=== PATIENT | male | born 1945 | race Caucasian/White ===

== ENCOUNTER 2018-04-25 13:54 | Outpatient (CLI) | payer OTHER | END 2018-04-25 14:07 | disposition home or self-care (01) | LOC: LAB 13:54 | DX: D50.8 Other iron deficiency anemias (principal); I10 Essential (primary) hypertension ==

== ENCOUNTER 2023-06-21 09:12 | Emergency (ER) | payer OTHER ==
[~2023-06-21] VITALS: Ht 177.8 cm; Wt 93.0 kg
[2023-06-21] MEDS ORDERED: LISINOPRIL20 MG PO (09:28)
[2023-06-21] MEDS ORDERED: JARDIANCE25 MG PO (09:28)
[2023-06-21] MEDS ORDERED: METOPROLOL TAR100 MG PO (09:28)
[2023-06-21] MEDS ORDERED: ELIQUIS5 MG PO (09:29)
[2023-06-21] MEDS ORDERED: ATORVASTATIN CA80 MG PO (09:29)
[2023-06-21] MEDS ORDERED: METFORMIN HCL500 M4 PO (09:29)
[2023-06-21] MEDS ORDERED: DILTIAZEM 24HR180 MG PO (09:29)
[2023-06-21] MEDS ORDERED: LEVOTHYROXINE50 MCG PO (09:29)
[2023-06-21] MEDS ORDERED: LANTUS SOL100 UNIT/1 (09:30)
[2023-06-21] MEDS ORDERED: TRIAMTERENE-HC1 EAC3 PO (09:30)
[2023-06-21 10:58] LABS: HEMATOCRIT 39.4 % (39.0-48.0); HEMOGLOBIN 13.7 g/dL (13-16.00); MEAN CELL VOLUME 89.5 fL (80.0-100.00); MEAN CORPUSCULAR HGB CONC 34.7 g/dl (32.0-36.0); PLATELET COUNT 263 K/uL (150-450); RED BLOOD COUNT 4.41 M/uL (4.00-6.00); RED CELL DISTRIBUTION WIDTH 14.2 % (11.5-14.5)
[2023-06-21 11:36] LABS: CALCIUM 9.1 mg/dL (8.5-10.1); CREATININE SERUM 1.07 mg/dL (0.70-1.30); GFR 66.84; POTASSIUM 3.77 mEq/L (3.5-5.1)
[2023-06-21 12:16] LABS: D DIMER 0.51 MG/L; INR 1.04; PARTIAL THROMBOPLASTIN TIME 34.2 SECONDS (22.0-34.0); PROTHROMBIN TIME 10.9 SECONDS (9.0-11.5)
== END 2023-06-21 14:14 | disposition home or self-care (01) ==
LOC: ER 09:12
PROVIDERS: General Practice
DX: S83.092A Other subluxation of left patella, initial encounter (principal); M19.90 Unspecified osteoarthritis, unspecified site; I10 Essential (primary) hypertension; E78.00 Pure hypercholesterolemia, unspecified; Z86.73 Personal history of transient ischemic attack (TIA), and cerebral infarction without residual deficits; Z85.89 Personal history of malignant neoplasm of other organs and systems; Z91.018 Allergy to other foods

== ENCOUNTER → 2023-07-08 07:58 | Outpatient (CLI) | payer OTHER ==
[~2023-07-08 07:58] MED LIST: ATORVASTATIN CA80 MG PO; DILTIAZEM 24HR180 MG PO; ELIQUIS5 MG PO; JARDIANCE25 MG PO; LANTUS SOL100 UNIT/1; LEVOTHYROXINE50 MCG PO; LISINOPRIL20 MG PO; METFORMIN HCL500 M4 PO; METOPROLOL TAR100 MG PO; TRIAMTERENE-HC1 EAC3 PO
[2023-07-08 09:08] LABS: ALBUMIN 3.1 gm/dL (3.4-5.0); BILIRUBIN TOTAL 0.72 mg/dL (0.3-1.2); CALCIUM 9.1 mg/dL (8.5-10.1); CREATININE SERUM 1.06 mg/dL (0.70-1.30); GFR 67.57; PHOSPHOROUS 4.1 mg/dL (2.5-4.9); POTASSIUM 3.57 mEq/L (3.5-5.1); TOTAL PROTEIN 7.1 gm/dL (6.4-8.2)
[2023-07-09 16:08] LABS: CALCIUM IONIZED 5.2 mg/dL (4.5-5.6)
== END | disposition home or self-care (01) ==
LOC: LAB 07:58
PROVIDERS: ATTEND Orthopaedic Surgery
DX: E55.9 Vitamin D deficiency, unspecified (principal); M85.9 Disorder of bone density and structure, unspecified; E56.1 Deficiency of vitamin K; E21.3 Hyperparathyroidism, unspecified; M81.8 Other osteoporosis without current pathological fracture; E88.89 Other specified metabolic disorders; Z91.013 Allergy to seafood

== ENCOUNTER 2023-07-12 12:42 | Outpatient (CLI) | payer OTHER | END 2023-07-12 12:43 | disposition home or self-care (01) | LOC: NUCLEAR 12:42 | PROVIDERS: ATTEND Orthopaedic Surgery | DX: M81.0 Age-related osteoporosis without current pathological fracture (principal) ==